=== PATIENT | female | born 1995 | race African-American/Black ===

== ENCOUNTER 2019-10-24 06:20 | Inpatient (IN) | payer OTHER ==
[2019-10-20 14:37] VITALS: BMI 41.1
[2019-10-24] MEDS ORDERED: MIDAZOLAM HCL 2 MG/2 ML SINGLE DOSE VIAL ONE ×2 (06:52→07:39)
[2019-10-24] MEDS ORDERED: BUPIVACAINE HCL/PF 0.5% (5 MG/ML) 30 ML VIAL IJ ONE (06:53)
[2019-10-24] MEDS ORDERED: BUPIVACAINE HCL 0.25% 125 MG/50 ML VIAL ONE (07:20)
--- NOTE | 2019-10-24 07:34 | HP ---
Admitting History and Physical - Admission Chief Complaint: Morbid obesity History of Present Illness: Same History Source: Patient Limitations to Obtaining History: No Limitations - Past Medical History ...LMP: 09/21/19 - Smoking History Smoking history: Former smoker Have you smoked in the past 12 months: Yes - Alcohol/Substance Use Hx Alcohol Use: Yes (SOCIAL) - Social History ADL: Independent Home Medications - Allergies Allergies/Adverse Reactions: Allergies Allergy/AdvReac Type Severity Reaction Status Date / Time Penicillins Allergy Unknown Verified 10/20/19 14:30 - Home Medications Home Medications: Ambulatory Orders NK [No Known Home Medication] 10/20/19 Family Medical History Family History: Unremarkable Review of Systems - Review of Systems Constitutional: denies: Chills, Fever Neck: reports: No Symptoms Cardiovascular: reports: No Symptoms Respiratory: reports: No Symptoms Gastrointestinal: reports: No Symptoms Neurological: reports: No Symptoms Pain Intensity: 0 Physical Examination Vital Signs: Vital Signs Temperature Pulse Rate 83 10/24/19 06:40 Respiratory Rate 16 10/24/19 06:40 Blood Pressure 110/72 10/24/19 06:40 O2 Sat by Pulse Oximetry (%) Constitutional: Yes: Calm HENT: Yes: WNL Neck: Yes: WNL Cardiovascular: Yes: WNL Respiratory: Yes: WNL Gastrointestinal: Yes: Soft, Abdomen, Obese Neurological: Yes: Alert, Oriented Problem List - Problems (1) Morbid obesity due to excess calories Code(s): E66.01 - MORBID (SEVERE) OBESITY DUE TO EXCESS CALORIES (2) BMI 40.0-44.9, adult Code(s): Z68.41 - BODY MASS INDEX (BMI) 40.0-44.9, ADULT Assessment/Plan Laparoscopic possible open vertical sleeve gastrectomy possible liver biopsy, upper endoscopy
[2019-10-24] MEDS ORDERED: SUCCINYLCHOLINE CHLORIDE 200 MG/10 ML SYRINGE ONE (07:39)
[2019-10-24] MEDS ORDERED: PROPOFOL 20 ML ONE (07:39)
[2019-10-24] MEDS ORDERED: ROCURONIUM BROMIDE 50 MG/5 ML SYRINGE ONE (07:39)
[2019-10-24] MEDS ORDERED: ePHEDrine SULFATE 50 MG/1 ML AMPULE ONE (07:39)
[2019-10-24] MEDS ORDERED: fentaNYL CITRATE 250 MCG/5 ML VIAL ONE (07:39)
[2019-10-24] MEDS ORDERED: KETOROLAC TROMETHAMINE 30 MG/1 ML VIAL ONE (07:40)
[2019-10-24] MEDS ORDERED: DEXAMETHASONE SOD PHOSPHATE 4 MG/1 ML VIAL ONE (07:40)
[2019-10-24] MEDS ORDERED: ceFAZolin SODIUM 1 GM VIAL ONE (07:40)
[2019-10-24] MEDS ORDERED: LIDOCAINE HCL/PF 2% SDV 5ML VIAL ONE (07:40)
[2019-10-24] MEDS ORDERED: ONDANSETRON 4 MG/2 ML VIAL ONE (07:40)
[2019-10-24] MEDS ORDERED: BUPIVACAINE HCL/PF 0.25% (2.5MG/ML) 10 ML VIAL IJ ONE (09:17)
[2019-10-24] MEDS ORDERED: NEOSTIGMINE METHYLSULFATE 0.5 MG/ML - 10 ML MDV ONE (09:18)
[2019-10-24] MEDS ORDERED: GLYCOPYRROLATE 0.2 MG/1 ML VIAL ONE (09:19)
[2019-10-24] MEDS ORDERED: HYDROmorphone HCL CARPU-JECT 1 MG/1 ML DISP.SYRIN IVPB PRN (09:31)
--- NOTE | 2019-10-24 09:32 | OPR ---
Operative Note Operative Date: 10/24/19 Pre-Operative Diagnosis: Morbid obesity; BMI 40.5 Operation: 1. Diagnostic laparoscopy. 2. Laparoscopic vertical sleeve gastrectomy. 3. Laparoscopic wedge liver biopsy. 4. Laparoscopic oversewing of gastric staple line Post-Operative Diagnosis: Same as Pre-op (as well as hepatomegaly and oozing from gastric staple line) Surgeon: Orlin Rodriguez Monitoring Coordinator: Lou Laird Anesthesia: General Specimens Removed: Greater curvature of stomach. Liver biopsy. Estimated Blood Loss (mls): 30 Drains & Tubes with Location: 36 Fr Bougie Operative Report Dictated: Yes
[2019-10-24] MEDS ORDERED: oxyCODONE HCL 5 MG TABLET PO PRN ×2 (09:43)
[2019-10-24] MEDS ORDERED: PROMETHAZINE HCL 25 MG/1 ML VIAL IVPUSH PRN (09:43)
[2019-10-24] MEDS ORDERED: ONDANSETRON 4 MG/2 ML VIAL IVPUSH PRN (09:43)
[2019-10-24] MEDS: ACETAMINOPHEN 1000 MG/100 ML VIAL (NON FORMULARY) IVPB SCH ×3 (09:56→21:42)
[2019-10-24] MEDS: METOCLOPRAMIDE HCL INJECTION 10 MG/2 ML VIAL IVPUSH SCH ×3 (10:02→21:42)
[2019-10-24] MEDS ORDERED: FAMOTIDINE 20 MG PREMIXED IVPB IVPB ONE (10:05)
--- NOTE | 2019-10-24 10:23 | SPEC ---
DATE OF OPERATION: 10/24/2019 SURGEON: Orlin Rodriguez MD COOK DINNER: ALONDRA Luna PREOPERATIVE DIAGNOSES: 1. Morbid obesity. 2. Body mass index 40.5. POSTOPERATIVE DIAGNOSES: 1. Morbid obesity. 2. Body mass index 40.5. 3. Hepatomegaly. 4. Oozing from gastric staple line. PROCEDURE: Diagnostic laparoscopy, laparoscopic vertical sleeve gastrectomy, laparoscopic wedge liver biopsy, and laparoscopic over sewing of gastric staple line for oozing. SPECIMENS: 1. Greater curvature of the stomach. 2. Liver biopsy. ESTIMATED BLOOD LOSS: 30 mL. DRAINS: None. BOUGIE SIZE: 36-Finnish. REASON FOR PROCEDURE: This is a 24-year-old female who presents to the office for weight loss options. After describing different options, decided to proceed with laparoscopic, possible open, vertical sleeve gastrectomy, possible liver biopsy, upper endoscopy. The patient was seen by the respective subspecialties and cleared for surgery. The risks and benefits of the procedure were explained. These included bleeding, infection, hernia, HI, DVT, PE, injury to surrounding structures including the liver, colon, bowel, spleen, esophagus, vessel injury, nerve injury, weight regain, gastric leak, staple line leak, sleeve leak, obstruction, vitamin deficiency, hair loss and as some of the possible complications. The patient understood and signed informed consent. DESCRIPTION OF PROCEDURE: The patient was placed supine on the operating room table. The patient underwent general endotracheal intubation. The arms were brought out at 90 degrees and secured. A footboard was placed and the legs were secured laterally with padding. The abdomen was prepped and draped in the usual sterile fashion. A timeout was performed. An incision was made in the left upper quadrant and a Veress needle inserted. Pneumoperitoneum was established. Subsequently, the Veress needle was removed and a 5-mm trocar was placed under direct visualization with the laparoscope. The laparoscopic camera was then inserted and inspection of the abdominal cavity was performed. An incision was then made in the supraumbilical area and a 15-mm trocar was placed under direct visualization. A 5-mm trocar was then placed in the right upper quadrant and a 5-mm trocar was placed below the left subcostal margin. A stab wound was made in the subxiphoid area and a Ruby clamp inserted and removed to dilate the tract. A Reji liver retractor was inserted. The post was secured at the bedside by the nursing staff. The patient was placed in steep reverse Trendelenburg position and the Reji liver retractor was used to secure the liver towards the anterior abdominal wall. The pylorus was identified and 6 cm proximal to it, the lesser sac was entered using the LigaSure device. All lateral attachments to the greater curvature of the stomach, including the short gastric vessels, were ligated using the LigaSure device toward the gastrosplenic and gastrophrenic ligaments. Once this was done in its entirety, it was confirmed that all tubes within the nasal or oropharyngeal cavity, including a temperature probe were removed by Anesthesia. The bougie was then inserted by Anesthesia. Transection of the stomach was then begun staying adjacent to the bougie but away from the angularis. Transection of the stomach was performed near the portion of the stomach where the lesser sac was entered. Two laparoscopic Endo-BRYANT black stef were used at this location. Laparoscopic Endo BRYANT purple staple loads were then used for the remainder of the transection until the greater curvature of the stomach was fully transected. This was done staying close to the bougie. Care was taken to stay away from the angle of His cephalad. The staple line was then inspected. Hemostasis was identified. A leak test was then performed. It was clamped distally to the staple line. Irrigation solution was placed in the left upper quadrant and air was insufflated by Anesthesia into the sleeve. No leaks were identified. No obstruction was identified. This was done through the entirety of the staple line. The stomach was suctioned and the bougie removed fully intact under direct visualization. At this point, the irrigation solution was suctioned and again, hemostasis was noted. A wedge liver biopsy was then performed. The left lobe of the liver was identified. A portion of the edge of the left lobe of the liver was grasped. Using electrocautery, a wedge of the left liver was excised. The specimen was removed and sent off the field. Hemostasis of the wedge liver biopsy site was attained and noted using electrocautery. The 15-mm supraumbilical trocar was then removed and the greater curvature specimen removed from the site using a sponge stick gusman. A Bennie-Tr device was then used to close the fascia with a 0 Vicryl suture at the site. Again, hemostasis was noted. The Reji liver retractor was then removed under direct visualization. Pneumoperitoneum was desufflated. Hemostasis was noted at all incision sites and Marcaine was injected at all incision sites. There was oozing noted to be at the gastric staple line. This was oversewn using Endo Stitch device with a Surgitek suture. Hemostasis was noted. Surgicel dressing was also placed along the entirety of the gastric staple line. A 3-0 Vicryl suture was used to close the deep subcutaneous tissue at the 15-mm incision site. All incision sites were closed using 4-0 Biosyn. Sterile dressings were applied. The patient tolerated the procedure well and was transferred to the recovery room in stable condition. Jesus [id number]
[2019-10-24 10:50] LABS: HEMATOCRIT 44.3 % (32.4-45.2); HEMOGLOBIN 14.4 GM/dl (10.7-15.3); MCH 28.9 pg (25.7-33.7); MCHC 32.4 g/dl (32.0-36.0); MEAN PLT VOLUME 9.9 fl (7.5-11.1); PLATELET COUNT 255 K/MM3 (134-434); RBC 4.97 M/mm3 (3.60-5.2); RDW 12.8 % (11.6-15.6); WHITE BLOOD COUNT 13.1 K/mm3 (4.0-10.8)
[2019-10-24 10:57] LABS: ALBUMIN 3.6 g/dl (3.4-5.0); BILIRUBIN,TOTAL 0.4 mg/dl (0.2-1); CREATININE 0.8 mg/dl (0.55-1.3); POTASSIUM 4.1 mmol/L (3.5-5.1); TOT PROT 7.1 g/dl (6.4-8.2)
--- NOTE | 2019-10-24 12:29 | SURG ---
Surgery Project Drilling Engineer Note Project Drilling Engineer: Lou Laird PA-C Date of Service: 10/24/19 Diagnosis: Morbid obesity; BMI 40.5 Procedure: 1. Diagnostic laparoscopy. 2. Laparoscopic vertical sleeve gastrectomy. 3. Laparoscopic wedge liver biopsy. 4. Laparoscopic oversewing of gastric staple line I was present for the entirety of the operative procedure. For further detail, please refer to operative report. Visit type - Case Type Case Type: Scheduled - Emergency Emergency Visit: No - New patient This patient is new to me today: Yes Date on this admission: 10/24/19
[2019-10-24] MEDS: SODIUM CHLORIDE 1,000 ML IV SCH (15:51)
[2019-10-24] MEDS: ONDANSETRON 4 MG/2 ML VIAL IVPUSH SCH ×3 (15:59→21:42)
[2019-10-24] MEDS: FAMOTIDINE 20 MG/50 ML IVPB 20 MG/50 ML MG IVPB SCH ×2 (16:02→21:41)
[2019-10-24] MEDS: ENOXAPARIN NA (PORCINE) 40 MG/0.4 ML DISP.SYRIN SQ SCH (21:42)
[2019-10-25] MEDS: ONDANSETRON 4 MG/2 ML VIAL IVPUSH SCH ×3 (02:17→09:56)
[2019-10-25] MEDS: METOCLOPRAMIDE HCL INJECTION 10 MG/2 ML VIAL IVPUSH SCH ×2 (02:53→09:57)
[2019-10-25] MEDS: ACETAMINOPHEN 1000 MG/100 ML VIAL (NON FORMULARY) IVPB SCH (02:54)
[2019-10-25 06:22] VITALS: BP 135/86; PULSE 84; TEMP 99.3
--- NOTE | 2019-10-25 07:58 | DS ---
Physical Exam: SUBJECTIVE: Patient seen and examined OBJECTIVE: Vital Signs Temperature 99.3 F 10/25/19 04:00 Pulse Rate 84 10/25/19 04:00 Respiratory Rate 18 10/25/19 04:00 Blood Pressure 135/86 10/25/19 04:00 O2 Sat by Pulse Oximetry (%) 96 10/25/19 04:00 PHYSICAL EXAM GENERAL: The patient is awake, alert, and fully oriented, in no acute distress. HEAD: Normal with no signs of trauma. EYES: PERRL, extraocular movements intact, sclera anicteric, conjunctiva clear. NECK: Trachea midline, full range of motion, supple. LUNGS: Breath sounds equal, clear to auscultation bilaterally, no wheezes, no crackles, no accessory muscle use. HEART: Regular rate and rhythm ABDOMEN: Soft, nontender, nondistended, no guarding, no rebound, no hepatosplenomegaly, no masses. EXTREMITIES: warm, well-perfused, no edema. NEUROLOGICAL: Cranial nerves II through XII grossly intact. Normal speech, gait not observed. PSYCH: Normal mood, normal affect. SKIN: Warm, dry, normal turgor, no rashes or lesions noted. LABS CBC,CMP WBC 13.1 K/mm3 (4.0-10.8) H 10/24/19 10:00 RBC 4.97 M/mm3 (3.60-5.2) 10/24/19 10:00 Hgb 14.4 GM/dl (10.7-15.3) 10/24/19 10:00 Hct 44.3 % (32.4-45.2) 10/24/19 10:00 MCV 89.0 fl (80-96) 10/24/19 10:00 MCH 28.9 pg (25.7-33.7) 10/24/19 10:00 MCHC 32.4 g/dl (32.0-36.0) 10/24/19 10:00 RDW 12.8 % (11.6-15.6) 10/24/19 10:00 Plt Count 255 K/MM3 (134-434) 10/24/19 10:00 MPV 9.9 fl (7.5-11.1) 10/24/19 10:00 Sodium 137 mmol/L (136-145) 10/24/19 10:00 Potassium 4.1 mmol/L (3.5-5.1) 10/24/19 10:00 Chloride 106 mmol/L (98-107) 10/24/19 10:00 Carbon Dioxide 22 mmol/L (21-32) 10/24/19 10:00 Anion Gap 9 MMOL/L (8-16) 10/24/19 10:00 BUN 13.0 mg/dl (7-18) 10/24/19 10:00 Creatinine 0.8 mg/dl (0.55-1.3) 10/24/19 10:00 Est GFR (CKD-EPI)AfAm 120.44 10/24/19 10:00 Est GFR (CKD-EPI)NonAf 103.92 10/24/19 10:00 Random Glucose 124 mg/dl (74-106) H 10/24/19 10:00 Calcium 9.0 mg/dl (8.5-10) 10/24/19 10:00 Total Bilirubin 0.4 mg/dl (0.2-1) 10/24/19 10:00 AST 29 U/L (15-37) 10/24/19 10:00 ALT 34 U/L (13-61) 10/24/19 10:00 Alkaline Phosphatase 60 U/L (45-117) 10/24/19 10:00 Total Protein 7.1 g/dl (6.4-8.2) 10/24/19 10:00 Albumin 3.6 g/dl (3.4-5.0) 10/24/19 10:00 HOSPITAL COURSE: Date of Admission:10/24/19 Date of Discharge: 10/25/19 HOSPITAL COURSE: The patient was admitted to the Med-Surg Unit after elective bariatric surgery. Now, s/p laparoscopic vertical sleeve gastrectomy. The day of surgery, the patient ambulated the hallways with assistance. The patient was monitored with remote tele/continuous pulse ox. Narcotic and non-narcotic pain management control was achieved with oral and IV pain control. Upper GI series was obtained the following morning and no leak, extravastion or gastric outlet obstruction. Started on a Bariatric Stage 1 diet and tolerated well. Kelli-operative IV ABX were administered in addition to GI prophylaxis. DVT prophylaxis was achieved with SCDs and early ambulation. The discharge instructions and an oral pain management plan were reviewed with the patient. All questions answered. Above plan discussed with Dr. Rodriguez and agreed. Minutes to complete discharge: 20 Visit type - Case Type Case Type: Scheduled - Emergency Emergency Visit: No - New patient This patient is new to me today: No - Critical Care Critical Care patient: No
[2019-10-25 08:04] LABS: HEMATOCRIT 37.5 % (32.4-45.2); HEMOGLOBIN 12.5 GM/dl (10.7-15.3); MCH 29.6 pg (25.7-33.7); MCHC 33.4 g/dl (32.0-36.0); MEAN CELL VOLUME 88.7 fl (80-96); MEAN PLT VOLUME 9.5 fl (7.5-11.1); PLATELET COUNT 221 K/MM3 (134-434); RBC 4.23 M/mm3 (3.60-5.2); RDW 12.5 % (11.6-15.6); WHITE BLOOD COUNT 13.2 K/mm3 (4.0-10.8)
[2019-10-25 08:10] LABS: ALBUMIN 3.3 g/dl (3.4-5.0); BILIRUBIN,TOTAL 0.7 mg/dl (0.2-1); CALCIUM 8.4 mg/dl (8.5-10); CREATININE 0.7 mg/dl (0.55-1.3); POTASSIUM 3.7 mmol/L (3.5-5.1); TOT PROT 6.4 g/dl (6.4-8.2)
[2019-10-25] MEDS: SODIUM CHLORIDE 1,000 ML IV SCH (09:56)
[2019-10-25] MEDS: FAMOTIDINE 20 MG/50 ML IVPB 20 MG/50 ML MG IVPB SCH (09:56)
[2019-10-25] MEDS: ENOXAPARIN NA (PORCINE) 40 MG/0.4 ML DISP.SYRIN SQ SCH (09:57)
[2019-10-25] MEDS ORDERED: SODIUM CHLORIDE 1,000 ML IV SCH (10:45)
--- NOTE | 2019-10-27 15:22 | PATH ---
Surgical Pathology Report Patient Name: EUFEMIA COLBY Med. Rec. #: [id number] /Age/Gender: 1995 (Age: 24) / F Account: [id number] Location: [facility] MED-SURG Taken: 10/24/2019 Received: 10/24/2019 Reported: 10/27/2019 Physicians: Orlin Rodriguez M.D. Specimen(s) Received A: GREATER CURVATURE STOMACH B: LIVER BIOPSY Clinical History Morbid obesity Final Diagnosis A. STOMACH, GREATER CURVATURE, LAPAROSCOPIC VERTICAL SLEEVE GASTRECTOMY: PORTION OF STOMACH WITH MILD CHRONIC GASTRITIS. IMMUNOHISTOCHEMICAL STAIN FOR H. PYLORI IS NEGATIVE. B. LIVER, BIOPSY: LIVER PARENCHYMA WITH MILD STEATOSIS (~20%). NO INCREASE IN IRON AND FIBROSIS ON PERFORMED SPECIAL STAINS (IRON AND TRICHROME). Electronically Signed Etelvina Ryan M.D. Gross Description A. Received in formalin, labeled "greater curvature of stomach," is a 95 gram, 18.0 x 3.0 x 2.3 cm. portion of stomach with a stapled margin of resection. The serosa is weathers-srivastava with minimal attached fat. The mucosa is weathers-pink with normal folds. No mucosal masses are identified. Support Worker sections are submitted in one cassette. B. Received in formalin labeled "liver biopsy," is a 2.7 x 0.9 x 0.6 cm weathers portion of soft tissue, consistent with a liver biopsy. The specimen is bisected and entirely submitted in one cassette. /10/25/2019 saudi10/25/2019
== END 2019-10-25 13:19 | disposition home or self-care (01) | DRG 403 ==
LOC: FM/S 06:20
PROVIDERS: ADMIT Surgery; ATTEND Surgery
PROC: 0DB64Z3 Excision of Stomach, Percutaneous Endoscopic Approach, Vertical (ICD-10-PCS; principal; 2019-10-24 08:29)
PROC: 0FB24ZX Excision of Left Lobe Liver, Percutaneous Endoscopic Approach, Diagnostic (ICD-10-PCS; 2019-10-24 08:29)
DX: E66.01 Morbid (severe) obesity due to excess calories (principal); Z68.41 Body mass index [BMI] 40.0-44.9, adult; R16.0 Hepatomegaly, not elsewhere classified
CPT/HCPCS: 36415; 74241-TC-FY; 80053; 81025; 85027; 86803; 87389; 94760; J0131; J7030